=== PATIENT | female | born 1995 | race Caucasian/White ===

== ENCOUNTER 2021-04-12 08:56 | Emergency (ER) | payer BC, OTHER ==
[2021-04-12] MEDS ORDERED: diphenhydrAMINE 50 MG/ML 1 ML VIAL IVP STA (10:48)
[2021-04-12] MEDS ORDERED: SODIUM CHLORIDE 0.9% 1,000 ML IV STA (10:48)
[2021-04-12] MEDS ORDERED: METOCLOPRAMIDE 5 MG/ML 2 ML VIAL IVP STA (10:48)
[2021-04-12 11:13] LABS: Basophils # (A) 0.1 k/uL (0-0.2); Basophils % (A) 1 %; Eosinophils # (A) 0.1 k/uL (0-0.7); Eosinophils % (A) 1 %; HCT 42.5 % (34.0-46.0); HGB 14.8 gm/dL (11.4-16.0); Lymphocytes # (A) 0.4 k/uL (1.0-4.8); Lymphocytes % (A) 4 %; MCH 32.2 pg (25.0-35.0); MCHC 34.8 g/dL (31.0-37.0); MCV 92.6 fL (80.0-100.0); Mean Platelet Volume 7.7; Monocytes # (A) 0.3 k/uL (0-1.0); Monocytes % (A) 3 %; Neutrophils # (A) 8.7 k/uL (1.3-7.7); Neutrophils % (A) 91 %; Platelet Count 253 k/uL (150-450); RBC 4.59 m/uL (3.80-5.40); RDW 12.9 % (11.5-15.5); WBC 9.5 k/uL (3.8-10.6)
--- NOTE | 2021-04-12 11:14 | ED ---
General Adult HPI - General Chief complaint: Nausea/Vomiting/Diarrhea Stated complaint: 10 weeks preg, NVD Time Seen by Provider: 04/12/21 10:42 Source: patient Mode of arrival: ambulatory Limitations: no limitations - History of Present Illness Initial comments: 25-year-old female, , 10 weeks presenting to the emergency department with a chief complaint of nausea vomiting diarrhea. Patient reports her symptoms began yesterday having nausea and multiple episodes not believe some nonbloody vomiting. States this is not typical vomiting which usually occurs in the morning. This has been consistent throughout the day. States she has not been able to keep any orals. States he is also developed some diarrhea since yesterday. Reports very mild lower abdominal pain. She denies any associated fevers or chills. Denies any vaginal bleeding, discharge, foul smell or itching. Denies dysuria, increased urgency or frequency. - Related Data Home Medications Medication Instructions Recorded Confirmed Norgestimate-Ethinyl Estradiol 1 each PO DAILY 02/05/15 02/05/15 [Tri-Sprintec Tablet] Allergies Allergy/AdvReac Type Severity Reaction Status Date / Time No Known Allergies Allergy Verified 04/12/21 09:30 Review of Systems ROS Statement: Those systems with pertinent positive or pertinent negative responses have been documented in the HPI. ROS Other: All systems not noted in ROS Statement are negative. Past Medical History Past Medical History: No Reported History History of Any Multi-Drug Resistant Organisms: None Reported Past Surgical History: No Surgical Hx Reported Past Psychological History: No Psychological Hx Reported Smoking Status: Never smoker Past Alcohol Use History: None Reported Past Drug Use History: None Reported General Exam Limitations: no limitations General appearance: alert, in no apparent distress Head exam: Present: atraumatic, normocephalic, normal inspection Eye exam: Present: normal appearance Pupils: Present: normal accommodation ENT exam: Present: normal exam, normal oropharynx, mucous membranes dry Neck exam: Present: normal inspection, full ROM. Absent: tenderness, lymphadenopathy Respiratory exam: Present: normal lung sounds bilaterally. Absent: respiratory distress, wheezes, rales, rhonchi, stridor Cardiovascular Exam: Present: regular rate, normal rhythm, normal heart sounds. Absent: systolic murmur GI/Abdominal exam: Present: soft. Absent: distended, tenderness, guarding, rebound, rigid Extremities exam: Present: normal inspection, full ROM, normal capillary refill. Absent: tenderness, pedal edema, joint swelling, calf tenderness Back exam: Present: normal inspection, full ROM. Absent: tenderness, CVA ten derness (R), CVA tenderness (L) Neurological exam: Present: alert, oriented X3, CN II-XII intact, normal gait Psychiatric exam: Present: normal affect, normal mood Skin exam: Present: warm, dry, intact, normal color Course Vital Signs 04/12/21 09:28 Temperature 97.6 F Pulse Rate 89 Respiratory 16 Rate Blood Pressure 97/67 O2 Sat by Pulse 98 Oximetry Medical Decision Making - Medical Decision Making 25-year-old female, , 10 weeks presenting to the emergency department with a chief complaint of nausea vomiting diarrhea. On physical examination she has dry mucous membranes. She is not able to give a urine sample. HCG Quant 219,000. Ultrasound reveals a single, live intrauterine pre gnancy 10 weeks and 5 days' gestation. Patient was given IV fluids, Reglan and Benadryl. Reevaluation, she reports improve the symptoms. She has an appointment to see Dr. Moreno who is her OB. I will prescribe Reglan for her. Return parameters were thoroughly discussed with patient is an ascending agreeable. Case discussed with Dr. Garibay. - Lab Data Result diagrams: 04/12/21 11:00 04/12/21 11:00 Lab Results 04/12/21 04/12/21 Range/Units 11:00 11:00 WBC 9.5 (3.8-10.6) k/uL RBC 4.59 (3.80-5.40) m/uL Hgb 14.8 (11.4-16.0) gm/dL Hct 42.5 (34.0-46.0) % MCV 92.6 (80.0-100.0) fL MCH 32.2 (25.0-35.0) pg MCHC 34.8 (31.0-37.0) g/dL RDW 12.9 (11.5-15.5) % Plt Count 253 (150-450) k/uL MPV 7.7 Neutrophils % 91 % Lymphocytes % 4 % Monocytes % 3 % Eosinophils % 1 % Basophils % 1 % Neutrophils # 8.7 H (1.3-7.7) k/uL Lymphocytes # 0.4 L (1.0-4.8) k/uL Monocytes # 0.3 (0-1.0) k/uL Eosinophils # 0.1 (0-0.7) k/uL Basophils # 0.1 (0-0.2) k/uL Sodium 135 L (137-145) mmol/L Potassium 4.1 (3.5-5.1) mmol/L Chloride 105 (98-107) mmol/L Carbon Dioxide 20 L (22-30) mmol/L Anion Gap 10 mmol/L BUN 8 (7-17) mg/dL Creatinine 0.46 L (0.52-1.04) mg/dL Est GFR (CKD-EPI)AfAm >90 (>60 ml/min/1.73 sqM) Est GFR (CKD-EPI)NonAf >90 (>60 ml/min/1.73 sqM) Glucose 89 (74-99) mg/dL Calcium 9.6 (8.4-10.2) mg/dL Total Bilirubin 0.6 (0.2-1.3) mg/dL AST 21 (14-36) U/L ALT 12 (4-34) U/L Alkaline Phosphatase 78 (38-126) U/L Total Protein 7.1 (6.3-8.2) g/dL Albumin 4.2 (3.5-5.0) g/dL HCG, Quant 983537.0 mIU/mL Disposition Clinical Impression: Nausea vomiting and diarrhea Disposition: HOME SELF-CARE Condition: Stable Instructions (If sedation given, give patient instructions): Acute Nausea and Vomiting (ED) Additional Instructions: Please return to the Emergency Department if symptoms worsen or any other concerns. Is patient prescribed a controlled substance at d/c from ED?: No Referrals: Bhavik Dennison MD [Primary Care Provider] - 1-2 days Time of Disposition: 12:47
[2021-04-12 11:25] LABS: ALT 12 U/L (4-34); AST 21 U/L (14-36); African American GFR (CKD) >90 (>60 ml/min/1.73 sqM); Albumin 4.2 g/dL (3.5-5.0); Alkaline Phosphatase 78 U/L (38-126); Anion Gap 10 mmol/L; Blood Urea Nitrogen 8 mg/dL (7-17); Calcium 9.6 mg/dL (8.4-10.2); Carbon Dioxide 20 mmol/L (22-30); Chloride 105 mmol/L (98-107); Glucose 89 mg/dL (74-99); Non-African American GFR(CKD) >90 (>60 ml/min/1.73 sqM); Potassium 4.1 mmol/L (3.5-5.1); Sodium 135 mmol/L (137-145); Total Bilirubin 0.6 mg/dL (0.2-1.3); Total Protein 7.1 g/dL (6.3-8.2)
[2021-04-12] MEDS ORDERED: SODIUM CHLORIDE 0.9% 500 ML 500 ML IV STA (11:28)
--- NOTE | 2021-04-12 11:51 | US ---
EXAMINATION TYPE: Transabdominal DATE OF EXAM: 04/12/2021 11:31 AM COMPARISON: NONE CLINICAL HISTORY: bilat abd cramping. Pelvic pain EXAM PERFORMED: Transabdominal (TA) EXAM MEASUREMENTS: GESTATIONAL AGE / DATING Physician Established: (10 weeks/3 days) EDC: 11/05/2021 Dates by LMP: LMP unknown Dates by First Scan: No previous this is first scan Dates by Current Scan for: (10 weeks/5 days) EDC: 11/03/2021 MATERNAL ANATOMY Uterus: 11.3 x 6.6 x 7.6cm Right Ovary: 2.8 x 2.1 x 1.7cm Left Ovary: 2.5 x 1.5 x 1.6cm Post CDS / Adnexa: wnl Presence of free fluid: no Presence of corpus luteal cyst: not seen Presence of subchorionic bleed: no GESTATION / SURVEY CRL: 3.8cm (10 weeks/5 days) Yolk Sac (normal less than 6mm): not seen Heart Rate: 171 bpm Rhythm: Normal IUP: Viable IUP Viable single IUP measuring 10 weeks 5 days with a heart rate of 171bpm and an estimated delivery bella e of 11/03/2021 IMPRESSION: Single viable intrauterine as noted.
[2021-04-12 13:44] LABS: Appearance,Urine Cloudy (Clear); Bacteria,Urine Moderate /hpf; Bilirubin,Urine Negative (Negative); Blood,Urine Negative (Negative); Color,Urine Yellow; Glucose,Urine (UA) Negative (Negative); Ketones,Urine 4+ (Negative); Leukocyte Esterase,Urine Trace (Negative); Mucus,Urine Occasional /hpf; Nitrite,Urine Negative (Negative); PH, Urine 7.5 (5.0-8.0); Protein,Urine Trace (Negative); RBC,Urine 1 /hpf (0-5); Specific Gravity,Urine 1.023 (1.001-1.035); Squamous Epithelial Cell,Urine 8 /hpf (0-4); Urobilinogen,Urine <2.0 mg/dL (<2.0); WBC,Urine 3 /hpf (0-5)
[2021-04-12 14:03] VITALS: BP 104/71; PULSE 84; RESP 18; TEMP 97.7
== END 2021-04-12 14:00 | disposition home or self-care (01) ==
LOC: EC 08:56
DX: O21.9 Vomiting of pregnancy, unspecified (principal); O26.891 Other specified pregnancy related conditions, first trimester; R19.7 Diarrhea, unspecified; R10.30 Lower abdominal pain, unspecified; Z3A.10 10 weeks gestation of pregnancy
CPT/HCPCS: 36415; 80053; 85025; 81001; 84702; 76801; 96374; 96375; 96361; 99284; J1200; J2765

== ENCOUNTER 2021-08-11 15:50 | Emergency (ER) | payer OTHER ==
--- NOTE | 2021-08-11 17:44 | ED ---
General Adult HPI - General Stated complaint: COVID+, NEEDS BAM, 28 WEEKS Time Seen by Provider: 08/11/21 17:41 - History of Present Illness Initial comments: 25 year-old female patient presents to get the antibody infusion after testing positive for COVID today. She has had symptoms for about a week. She is 28 weeks . Denies fever. Reports some shortness of breath. Reports mild cough. Mild nausea. No vomiting or diarrhea. Denies any other medical problems. She is not having any abdominal pain, vaginal bleeding, or discharge. She is . - Related Data Home Medications Medication Instructions Recorded Confirmed Aspirin EC [Ecotrin Low Dose] 81 mg PO DAILY 08/11/21 08/11/21 M- Plus 1 tab PO DAILY 08/11/21 08/11/21 Omeprazole 20 mg PO DAILY 08/11/21 08/11/21 Allergies Allergy/AdvReac Type Severity Reaction Status Date / Time No Known Allergies Allergy Verified 08/11/21 20:06 Review of Systems ROS Statement: Those systems with pertinent positive or pertinent negative responses have been documented in the HPI. ROS Other: All systems not noted in ROS Statement are negative. Past Medical History Past Medical History: No Reported History History of Any Multi-Drug Resistant Organisms: None Reported Past Surgical History: No Surgical Hx Reported Past Psychological History: No Psychological Hx Reported Smoking Status: Never smoker Past Alcohol Use History: None Reported Past Drug Use History: None Reported General Exam General appearance: alert, in no apparent distress, other (This is a well- developed, well-nourished adult female in no acute distress.) ENT exam: Present: normal exam, normal oropharynx, mucous membranes moist Respiratory exam: Present: normal lung sounds bilaterally. Absent: respiratory distress, wheezes, rales, rhonchi, stridor Cardiovascular Exam: Present: regular rate, normal rhythm, normal heart sounds. Absent: systolic murmur, diastolic murmur, rubs, gallop, clicks GI/Abdominal exam: Present: soft, normal bowel sounds, other (Gravid abdomen). Absent: distended, tenderness, guarding, rebound, rigid Neurological exam: Present: alert, oriented X3, CN II-XII intact Psychiatric exam: Present: normal affect, normal mood Skin exam: Present: warm, dry, intact, normal color. Absent: rash Course Vital Signs 12/08/11/21 08/11/21 17:38 19:42 20:59 Temperature 98.7 F Pulse Rate 80 88 70 Respiratory 18 16 Rate Blood Pressure 120/74 118/76 104/71 O2 Sat by Pulse 98 97 99 Oximetry 08/11/21 22:10 Temperature 97.8 F Pulse Rate 70 Respiratory 16 Rate Blood Pressure 107/70 O2 Sat by Pulse 97 Oximetry Medical Decision Making - Medical Decision Making 25-year-old female patient is 28 weeks presents at the request of her WATER TESTER to receive monoclonal antibody infusion. She is cared for by Dr. Moreno. She did test positive for ". She did receive the infusion and tolerated it well. To be discharged to follow-up with the primary care physician and her WATER TESTER for recheck as soon as possible. Return parameters were discussed in detail. She verbalizes understanding and agrees with this plan. My attending is Dr. Galarza. Disposition Clinical Impression: COVID-19 Disposition: HOME SELF-CARE Condition: Good Instructions (If sedation given, give patient instructions): Coronavirus Disease 2019 (COVID-19) Additional Instructions: Tips to help you feel better: -Maintain adequate fluid intake - especially water. -Rest, you are healing your body will require extra sleep. -Eat even if you do not feel like it - broth, jello, toast are fine if you cannot eat full meals. -Take tylenol (if you have no allergies or have not been instructed to avoid these medications) to help with body aches and fevers. -Take medications as prescribed. Follow-up with your primary care physician and OBGYN for recheck in 1-2 days. Return for any new, worsening, or concerning symptoms. Is patient prescribed a controlled substance at d/c from ED?: No Referrals: Bhavik Dennison MD [Primary Care Provider] - 1-2 days Time of Disposition: 21:35
[2021-08-11] MEDS ORDERED: SODIUM CHLORIDE 0.9% 50 ML IVPB ONE (18:00)
[2021-08-11] MEDS ORDERED: CASIRIVIMAB (REGN10933) (EUA) 600 MG, IMDEVIMAB (REGN10987) (EUA) 600 MG in SODIUM CHLO... IVPB ONE (18:00)
[2021-08-11 20:47] VITALS: RESP 16
[2021-08-11 21:00] VITALS: PULSE 70
[2021-08-11 22:11] VITALS: BP 107/70; TEMP 97.8
== END 2021-08-11 22:10 | disposition home or self-care (01) ==
LOC: EC 15:50
DX: O98.512 Other viral diseases complicating pregnancy, second trimester (principal); U07.1 COVID-19; Z3A.26 26 weeks gestation of pregnancy
CPT/HCPCS: 99284; Q0244

== ENCOUNTER 2021-10-17 01:10 | Inpatient (IN) | payer OTHER ==
[2021-10-17] MEDS ORDERED: TERBUTALINE 1 MG/ML VIAL SQ PRN (01:20)
[2021-10-17] MEDS ORDERED: OXYTOCIN 10 UNIT/ML 1 ML VIAL IM PRN (01:20)
[2021-10-17] MEDS ORDERED: METHYLERGONOVINE 0.2 MG/ML 1 ML AMP IM PRN (01:20)
[2021-10-17] MEDS ORDERED: CARBOPROST TROMETHAMINE 250 MCG/ML 1 ML AMP IM PRN (01:20)
[2021-10-17] MEDS ORDERED: PENICILLIN G POTASSIUM 5,000,000 UNIT in DEXTROSE 5% IN WATER 100 ML IVPB STA ×2 (01:20)
[2021-10-17] MEDS ORDERED: LIDOCAINE 1% (PF) 10 MG/ML (30 ML SDV) SQ PRN (01:20)
[2021-10-17] MEDS ORDERED: LACTATED RINGERS 1,000 ML IV SCH (01:30)
[2021-10-17] MEDS ORDERED: OXYTOCIN 30 UNITS/500 ML NS 30 UNIT in SALINE 1 500ML.BAG IV SCH ×2 (01:30→07:45)
--- NOTE | 2021-10-17 01:31 | P.HPOB ---
History of Present Illness H&P Date: 10/17/21 Chief Complaint: Spontaneous rupture of membranes This is a 25-year-old 6 para 0050 woman with an estimated due date of 11/07/2021 who presents at 37-2/7 weeks gestation complaining of spontaneous rupture of membranes and regular painful contractions. Upon initial evaluation in labor and delivery triage rupture of membranes is confirmed by amnio sure and she is actively tyler and 4+ centimeters dilated. Her has been complicated by multiple covert positive infections. She received monoclonal antibody therapy. She's been followed antenatally with NSTs and growth ultrasounds all of which have been reassuring. 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 Laboratory data shows blood type B+, antibody screen negative, rubella immune, VDRL nonreactive, hep B surface antigen negative, HIV negative, gonorrhea and chlamydia cultures negative, glucose tolerance testing within normal limits. Group B strep cultures were taken however results are still pending. Review of Systems All systems: negative Past Medical History Past Medical History: No Reported History History of Any Multi-Drug Resistant Organisms: None Reported Past Surgical History: No Surgical Hx Reported Past Psychological History: No Psychological Hx Reported Smoking Status: Never smoker Past Alcohol Use History: None Reported Past Drug Use History: None Reported Medications and Allergies Home Medications Medication Instructions Recorded Confirmed Type Pnv No.95/Ferrous Fum/Folic AC 1 tab PO DAILY 10/17/21 10/17/21 History [ Multivitamin Tablet] Allergies Allergy/AdvReac Type Severity Reaction Status Date / Time No Known Allergies Allergy Verified 10/17/21 01:15 Exam Intake and Output 10/16/21 10/16/21 10/17/21 14:59 22:59 06:59 Other: Weight 72.121 kg This is a visibly gravid, very uncomfortable and actively laboring female. Targeted physical exam is performed. Per RN exam the patient has 4+ centimeters dilated 70% effaced, vertex. Rupture of membranes is confirmed. She has category 1 heart tones. She has spontaneously tyler every 2-3 minutes uncomfortably. Assessment and Plan (1) 37 weeks gestation of Current Visit: Yes Status: Acute Code(s): Z3A.37 - 37 WEEKS GESTATION OF SNOMED Code(s): 96558606 (2) Spontaneous rupture of membranes Current Visit: Yes Status: Acute Code(s): HLH4952 - SNOMED Code(s): 749421774 (3) Spontaneous onset of labor Current Visit: Yes Status: Acute Code(s): RTU4803 - SNOMED Code(s): 63460791 Plan: This is a 25-year-old 6 para 0 woman who presents at 37-2/7 weeks' gestation with spontaneous rupture of membranes and active labor. Group B strep cultures are pending therefore status unknown. Prophylactic antibiotics will be initiated. status currently reassuring by external monitoring. She may have an epidural for analgesia upon request. Anticipate normal spontaneous vaginal delivery.
[2021-10-17] MEDS: LACTATED RINGERS 1,000 ML IV SCH ×2 (01:48→20:07)
[2021-10-17] MEDS ORDERED: BUTORPHANOL 1 MG/ML 1 ML VIAL IV PRN (02:06)
[2021-10-17 02:32] LABS: Basophils % (A) 0 %; Eosinophils # (A) 0.2 k/uL (0-0.7); Eosinophils % (A) 3 %; HCT 36.3 % (34.0-46.0); HGB 12.5 gm/dL (11.4-16.0); Lymphocytes # (A) 1.6 k/uL (1.0-4.8); Lymphocytes % (A) 19 %; MCH 33.2 pg (25.0-35.0); MCHC 34.5 g/dL (31.0-37.0); MCV 96.3 fL (80.0-100.0); Mean Platelet Volume 8.4; Monocytes # (A) 0.6 k/uL (0-1.0); Monocytes % (A) 7 %; Neutrophils % (A) 70 %; Platelet Count 232 k/uL (150-450); RBC 3.77 m/uL (3.80-5.40); RDW 13.5 % (11.5-15.5); WBC 8.6 k/uL (3.8-10.6)
[2021-10-17] MEDS ORDERED: SODIUM CHLORIDE 0.9% 100 ML BAG ONE (02:52)
[2021-10-17] MEDS ORDERED: fentaNYL (PF) 50 MCG/ML 5 ML AMP ONE (02:52)
[2021-10-17] MEDS ORDERED: ROPIVACAINE 5MG/ML 20ML VIAL ONE (02:52)
[2021-10-17] MEDS: PENICILLIN G POTASSIUM 2,500,000 UNIT in DEXTROSE 5% IN WATER 100 ML IVPB SCH ×4 (06:01→09:59)
[2021-10-17] MEDS ORDERED: diphenhydrAMINE 50 MG CAP PO PRN (07:33)
[2021-10-17] MEDS ORDERED: ACETAMINOPHEN TAB 325 MG TAB PO PRN (07:33)
[2021-10-17] MEDS ORDERED: diphenhydrAMINE 25 MG CAP PO PRN (07:33)
[2021-10-17] MEDS ORDERED: BENZOCAINE/MENTHOL SPRAY 1 GM/SPRAY AEROSOL TOPICAL PRN (07:33)
[2021-10-17] MEDS ORDERED: SIMETHICONE 80 MG CHEWABLE PO PRN (07:33)
[2021-10-17] MEDS ORDERED: diphenhydrAMINE 50 MG/ML 1 ML VIAL IVP PRN ×2 (07:33)
[2021-10-17] MEDS ORDERED: ZOLPIDEM 5 MG TAB PO PRN (07:33)
[2021-10-17] MEDS ORDERED: LANOLIN CREAM 5 GM TUBE TOPICAL PRN (07:33)
[2021-10-17] MEDS ORDERED: HYDROCORTISONE 2.5% RECTAL CREAM 30 GM TUBE RECTAL PRN (07:33)
--- NOTE | 2021-10-17 07:33 | P.PROBDLV ---
Vaginal Delivery Note - . Vaginal Delivery Note: Findings: Male infant in the right occiput posterior position with Apgars of 9 at 1 minute and 9 at 5 minutes weighing 7 lbs. 4 oz., 3305 g. Intact, three- vessel cord placenta. Bilateral labial abrasions. EBL 150 mL's. Delivery summary: This is a 25 year old 6 para 0050 woman who presented at 37-2/7 weeks' gestation with spontaneous rupture of membranes and active labor. Rupture of membranes occurred at 2345 on 10/16/2021. Following admission she was found to be actively tyler and rupture of membranes was confirmed. She was 4+ centimeters dilated. Following admission she did receive an epidural anesthetic and group B strep prophylactic antibiotics secondary to GBS status unknown. She had an unremarkable progression to complete cervical dilation however had no strong urge to push. She reached complete dilation at approximately 05 30. She commenced pushing at 06 25. There was excellent maternal effort. She pushed to and was repositioned, prepped and draped in the dorsal modified Piotr position. Bladder was drained with a straight catheter for approximately 200 mL of clear urine. With additional maternal effort 1 the infant's head delivered from the right occiput posterior position. This rested treated to the deliver the right shoulder under the pubic bone without difficulty. The rest the infant was delivered onto the field. The nose and mouth were bulb suctioned. The infant was placed on the maternal a bdomen. Eventually the cord was clamped and cut. Apgars were 9 at 1 minute and 9 at 5 minutes. The perineum was inspected and bilateral labial abrasions were appreciated. They were not actively bleeding. An intact, three-vessel cord placenta was expressed after the initiation of Pitocin intravenously. There was an approximately 10 minute third stage of labor. The uterus was massaged and noted to be firm below the level of the umbilicus. The vagina was reinspected and no further lacerations were noted. EBL was approximately 150 mL's. Both mother and infant were doing well post delivery in the room. All counts were correct.
[2021-10-17] MEDS: SENNOSIDES-DOCUSATE SODIUM 1 EACH TAB PO SCH ×2 (08:02→21:03)
[2021-10-17] MEDS: IBUPROFEN 600 MG TAB PO PRN ×2 (08:02→15:36)
[2021-10-18 01:09] VITALS: TEMP 98.1
[2021-10-18 07:06] LABS: Basophils # (A) 0.1 k/uL (0-0.2); Basophils % (A) 1 %; Eosinophils # (A) 0.4 k/uL (0-0.7); Eosinophils % (A) 4 %; HCT 34.3 % (34.0-46.0); HGB 11.4 gm/dL (11.4-16.0); Lymphocytes # (A) 1.6 k/uL (1.0-4.8); Lymphocytes % (A) 16 %; MCH 32.9 pg (25.0-35.0); MCHC 33.4 g/dL (31.0-37.0); MCV 98.7 fL (80.0-100.0); Monocytes # (A) 0.5 k/uL (0-1.0); Monocytes % (A) 5 %; Neutrophils % (A) 72 %; Platelet Count 188 k/uL (150-450); RBC 3.47 m/uL (3.80-5.40); RDW 13.5 % (11.5-15.5); WBC 9.7 k/uL (3.8-10.6)
[2021-10-18 08:07] VITALS: BP 105/59; PULSE 68; RESP 16
[2021-10-18] MEDS: SENNOSIDES-DOCUSATE SODIUM 1 EACH TAB PO SCH (08:09)
--- NOTE | 2021-10-18 10:23 | P.DS ---
Providers Date of admission: 10/17/21 01:15 Expected date of discharge: 10/18/21 Attending physician: Evaristo Silva Primary care physician: Stated None - Discharge Diagnosis(es) (1) 37 weeks gestation of Current Visit: Yes Status: Acute (2) Spontaneous rupture of membranes Current Visit: Yes Status: Acute (3) Spontaneous onset of labor Current Visit: Yes Status: Acute (4) Occiput posterior presentation of fetus Current Visit: Yes Status: Acute (5) Normal spontaneous vaginal delivery Current Visit: Yes Status: Acute Hospital Course: This is a 25-year-old 6 now para 1051 woman who presented at 37-2/7 weeks' gestation with spontaneous rupture of membranes and in active labor. Following admission she received group B strep prophylactic antibiotics. She received Stadol followed by an epidural anesthetic for analgesia. She reached complete cervical dilation after an unremarkable first stage of labor. She had a rapid second stage of labor to deliver a liveborn male from the occiput posterior position. Apgars were 9 at 1 minute and 9 at 5 minutes and weight was 7 lbs. 4 oz. She had bilateral labial abrasions and no perineal lacerations. Her course was unremarkable. By the morning of day #1 she was ambulating and voiding without difficulty. Her lochia was decreasing. She was breast-feeding successfully. Her vital signs and hemoglobin were stable. She was therefore discharged home with routine instructions for care and follow-up. Procedures: Normal spontaneous vaginal delivery Patient Condition at Discharge: Good Plan - Discharge Summary New Discharge Prescriptions: No Action Pnv No.95/Ferrous Fum/Folic AC [ Multivitamin Tablet] 1 tab PO DAILY Discharge Medication List Pnv No.95/Ferrous Fum/Folic AC [ Multivitamin Tablet] 1 tab PO DAILY 10/17/21 [History] Follow up Appointment(s)/Referral(s): Evaristo Silva MD [STAFF PHYSICIAN] - 6 Weeks Activity/Diet/Wound Care/Special Instructions: Follow-up in the office in 6 weeks . Call with any concerning signs or symptoms including heavy vaginal bleeding, severe abdominal pain, fever greater than 101, swelling or redness of the lower extremities, foul vaginal discharge, or signs of depression. Nothing in the vagina for 6 weeks after delivery, specifically no intercourse. May use [id number] Tylenol and/or ibuprofen as needed for pain. Discharge Disposition: HOME SELF-CARE
== END 2021-10-18 16:25 | disposition home or self-care (01) | DRG 807 ==
LOC: FBPOP 01:10 → 4FBP 01:15
PROVIDERS: ADMIT Obstetrics & Gynecology; ATTEND Obstetrics & Gynecology
PROC: 10E0XZZ Delivery of Products of Conception, External Approach (ICD-10-PCS; principal; 2021-10-17)
DX: O75.89 Other specified complications of labor and delivery (principal); Z37.0 Single live birth; Z3A.37 37 weeks gestation of pregnancy; O71.82 Other specified trauma to perineum and vulva
CPT/HCPCS: 85025; 86850; 86900; 86901

== ENCOUNTER 2023-03-21 17:16 | Emergency (ER) | payer OTHER ==
[2023-03-21 17:40] VITALS: RESP 16
[2023-03-21] MEDS ORDERED: SODIUM CHLORIDE 0.9% 1,000 ML IV STA (19:30)
[2023-03-21] MEDS ORDERED: HYDROmorphone 0.5 MG/0.5 ML SYRINGE IVP STA (19:47)
[2023-03-21] MEDS ORDERED: diphenhydrAMINE 50 MG/ML 1 ML VIAL IVP STA (19:47)
[2023-03-21] MEDS ORDERED: PYRIDOXINE 100 MG/ML 1 ML VIAL IVP STA (19:50)
[2023-03-21 19:57] LABS: Basophils % (A) 0 %; Eosinophils # (A) 0.1 k/uL (0-0.7); Eosinophils % (A) 1 %; HCT 43.3 % (34.0-46.0); HGB 14.5 gm/dL (11.4-16.0); Lymphocytes # (A) 2.5 k/uL (1.0-4.8); Lymphocytes % (A) 25 %; MCH 31.3 pg (25.0-35.0); MCHC 33.4 g/dL (31.0-37.0); MCV 93.7 fL (80.0-100.0); Mean Platelet Volume 7.5; Monocytes # (A) 0.7 k/uL (0-1.0); Monocytes % (A) 7 %; Neutrophils # (A) 6.6 k/uL (1.3-7.7); Neutrophils % (A) 64 %; Platelet Count 317 k/uL (150-450); RBC 4.62 m/uL (3.80-5.40); RDW 12.8 % (11.5-15.5); WBC 10.3 k/uL (3.8-10.6)
[2023-03-21 20:36] LABS: Appearance,Urine Cloudy (Clear); Bacteria,Urine Occasional /hpf; Bilirubin,Urine Negative (Negative); Blood,Urine Negative (Negative); Color,Urine Light Yellow; Glucose,Urine (UA) Negative (Negative); Ketones,Urine Negative (Negative); Leukocyte Esterase,Urine Trace (Negative); Nitrite,Urine Negative (Negative); PH, Urine 6.5 (5.0-8.0); Protein,Urine Negative (Negative); RBC,Urine 1 /hpf (0-5); Specific Gravity,Urine 1.012 (1.001-1.035); Squamous Epithelial Cell,Urine 11 /hpf (0-4); Urobilinogen,Urine <2.0 mg/dL (<2.0); WBC,Urine 2 /hpf (0-5)
--- NOTE | 2023-03-21 20:49 | US ---
EXAMINATION TYPE: Ultrasound OB <= 14 week fetus DATE OF EXAM: 03/21/2023 8:22 PM COMPARISON: NONE CLINICAL INDICATION: Female, 27 years old with history of pain; cramping since last night. No bleedin g. Pt states her last period was end of January, but not sure on exact date. EXAM PERFORMED: Transabdominal (TA) EXAM MEASUREMENTS: GESTATIONAL AGE / DATING Physician Established: Not yet established Dates by LMP: LMP unknown Dates by First Scan: No previous this is first scan Dates by Current Scan for: Unable to date by today's study MATERNAL ANATOMY Uterus: 9.6 x 6.8 x 4.2cm Right Ovary: 3.2 x 2.1 x 2.5cm Left Ovary: 3.3 x 2.4 x 1.4cm Post CDS / Adnexa: wnl Presence of free fluid: No Presence of corpus luteal cyst: Possible in rt ovary measuring 2.1 x 1.5 x 2.3cm Presence of subchorionic bleed: No GESTATION / SURVEY CRL: Not seen MSD: Not seen IUP: Cystic area seen in endometrium. A second smaller cystic area lower down measuring 8 mm could r epresent a cervical nabothian cyst. Date of LMP: Unknown Beta HcG (if available): Pending Tractor Engine As[employer]er notes: Cystic area seen in endometrium measuring 0.8cm. This could represent a gestationa l sac. This measurement is out of range and unable to date. IMPRESSION: Small 8 mm cystic structure along the fundal endometrium is too small for dating. It could represent an early gestational sac. Failed and pseudogestational sac of a nonvisualized ectopic pregn todd are also in the differential. Recommend serial beta-hCG and ultrasound follow-up to ensure the a ppearance of a normal pole with cardiac activity.
--- NOTE | 2023-03-21 21:17 | ED ---
Abdominal Pain HPI - General Chief Complaint: Abdominal Pain Stated Complaint: ABD Pain, (unk wks) Time Seen by Provider: 03/21/23 19:23 Source: patient Mode of arrival: ambulatory Limitations: no limitations - History of Present Illness Initial Comments: Patient is 27 year-old female presents to the emergency department for abdominal pain. Patient is at about 5 weeks based on last menstrual period. She does not have an OB yet. Today she started to have significant pain in her lower abdomen, both sides. Pain is sharp and nature, no radiation. Reports nausea no vomiting. No fever or chills. No urinary symptoms, Diarrhea, co nstipation. No vaginal bleeding. She does have history of ectopic a couple years ago which she states was managed in [place]. - Related Data Home Medications Medication Instructions Recorded Confirmed Pnv No.95/Ferrous Fum/Folic AC 1 tab PO DAILY 10/17/21 10/17/21 [ Multivitamin Tablet] Allergies Allergy/AdvReac Type Severity Reaction Status Date / Time No Known Allergies Allergy Verified 03/21/23 17:40 Review of Systems ROS Statement: Those systems with pertinent positive or pertinent negative responses have been documented in the HPI. ROS Other: All systems not noted in ROS Statement are negative. Past Medical History Past Medical History: No Reported History Additional Past Medical History / Comment(s): PCOS History of Any Multi-Drug Resistant Organisms: None Reported Past Surgical History: No Surgical Hx Reported Additional Past Surgical History / Comment(s): D&C (2019) Past Anesthesia/Blood Transfusion Reactions: Unable to Obtain Past Psychological History: No Psychological Hx Reported Smoking Status: Never smoker Past Alcohol Use History: Occasional Past Drug Use History: None Reported - Past Family History Father History Unknown: Yes General Exam Limitations: no limitations General appearance: alert Respiratory exam: Present: normal lung sounds bilaterally. Absent: respiratory distress, wheezes, rales, rhonchi, stridor Cardiovascular Exam: Present: regular rate, normal rhythm, normal heart sounds. Absent: systolic murmur, diastolic murmur, rubs, gallop, clicks GI/Abdominal exam: Present: soft, tenderness (Mild right lower quadrant left lower quadrant), normal bowel sounds. Absent: distended, guarding, rebound, rigid Extremities exam: Present: normal inspection, normal capillary refill Neurological exam: Present: alert Skin exam: Present: warm, dry, intact, normal color. Absent: rash Course Vital Signs 03/21/23 03/21/23 17:34 22:11 Temperature 98.1 F 98.6 F Pulse Rate 103 H 70 Respiratory 16 16 Rate Blood Pressure 128/75 99/63 O2 Sat by Pulse 98 97 Oximetry Medical Decision Making - Medical Decision Making Was pt. sent in by a medical professional or institution (, PA, SUPERVISOR TELEPHONE INFORMATION, urgent care, hospital, or shelter...) When possible be specific @ -No Did you speak to anyone other than the patient for history (EMS, parent, family, police, friend...)? What history was obtained from this source @ -No Did you review nursing and triage notes (agree or disagree)? Why? @ -I reviewed and agree with nursing and triage notes Were old charts reviewed (outside hosp., previous admission, EMS record, old EKG , old radiological studies, urgent care reports/EKG's, shelter records)? Report findings @ -No old charts were reviewed Differential Diagnosis (chest pain, altered mental status, abdominal pain women, abdominal pain men, vaginal bleeding, weakness, fever, dyspnea, syncope, headache, dizziness, GI bleed, back pain, seizure, CVA, palpatations, mental health)? @ Differential Abdominal Pain Women: Appendicitis, Cholecystitis, diverticulosis, ischemic bowel, pancreatitis, hepatitis, UTI, gastroenteritis, AAA, incarcerated hernia, bowel obstruction, constipation, inflammatory bowel, hepatitis, peptic ulcer disease, splenic infarction, perforated viscus, vulvitis, ovarian torsion, PID, kidney stone, placenta abruption, this is not meant to be an all-inclusive list EKG interpreted by me (3pts min.). @ -As above X-rays interpreted by me (1pt min.). @ -None done CT interpreted by me (1pt min.). @ -None done U/S interpreted by me (1pt. min.). @ small 8 mm cystic structure along the fundal endometrium too small for dating. Could represent early gestational sac versus failed and to gestational sac of a nonvisualized ectopic What testing was considered but not performed or refused? (CT, X-rays, U/S, labs)? Why? @ -None What meds were considered but not given or refused? Why? @ -None Did you discuss the management of the patient with other professionals (kahlil babcock i.e. , PA, SUPERVISOR TELEPHONE INFORMATION, lab, RT, psych nurse, addiction social worker, design quality engineer, teacher, corporate security officer, case management assistant)? Give summary @ -No Was smoking cessation discussed for >3mins.? @ -No Was critical care preformed (if so, how long)? @ -No Were there social determinants of health that impacted care today? How? (Homelessness, low income, unemployed, alcoholism, drug addiction, transportati on, low edu. Level, literacy, decrease access to med. care, assisted, rehab)? @ -No Was there de-escalation of care discussed even if they declined (Discuss DNR or withdrawal of care, Hospice)? DNR status @ -No What co-morbidities impacted this encounter? (DM, HTN, Smoking, COPD, CAD, Cancer, CVA, ARF, Chemo, Hep., AIDS, mental health diagnosis, sleep apnea, morbid obesity)? @ -None Was patient admitted / discharged? Hospital course, mention meds given and route, prescriptions, significant lab abnormalities, going to OR and other pertinent info. @ -Patient presenting for abdominal pain during first trimester . Patient appears to be in pain. She is requesting stronger pain medication than Tylenol. We discussed opioid use in patient states she is in a lot of pain and persists. She was given a dose of Dilaudid. The abdomen is soft. There is mild tenderness in the right lower quadrant left lower quadrant. Laboratory studies obtained. Beta hCG is 5350. Other laboratory studies are relatively unremarkable. Ultrasound shows a small 8 mm cystic structure along the fundal endometrium too small for dating. Pain controlled. Results discussed with patient. At this time there are no diagnostic studies to explain patient's symptoms. Patient feeling well enough to go home. RhoGAM not indicated as patient does not have vaginal bleeding. She is aware that this may be an early , miscarriage, or ectopic. We discussed very strict return parameters. She was given paper prescription for repeat beta-hCG in 48 hours. She will need to follow up for repeat ultrasound. Undiagnosed new problem with uncertain prognosis? @ -No Drug Therapy requiring intensive monitoring for toxicity (Heparin, Nitro, Insulin, Cardizem)? @ -No Were any procedures done? @ -No Diagnosis/symptom? @ -threatened miscarriage Acute, or Chronic, or Acute on Chronic? @ -acute Uncomplicated (without systemic symptoms) or Complicated (systemic symptoms)? @ -uncomplicated Side effects of treatment? @ -[No] Exacerbation, Progression, or Severe Exacerbation? @ -[No] Poses a threat to life or bodily function? How? (Chest pain, [place], [place], pneumonia, PE, COPD, DKA, ARF, appy, cholecystitis, CVA, Diverticulitis, Homicidal, Suicid al, threat to staff... and all critical care pts) @ -[No] Dr. Decker is my attending - Lab Data Result diagrams: 03/21/23 19:37 03/21/23 21:33 Lab Results 03/21/23 03/21/23 03/21/23 Range/Units 19:37 19:37 19:37 WBC 10.3 (3.8-10.6) k/uL RBC 4.62 (3.80-5.40) m/uL Hgb 14.5 (11.4-16.0) gm/dL Hct 43.3 (34.0-46.0) % MCV 93.7 (80.0-100.0) fL MCH 31.3 (25.0-35.0) pg MCHC 33.4 (31.0-37.0) g/dL RDW 12.8 (11.5-15.5) % Plt Count 317 (150-450) k/uL MPV 7.5 Neutrophils % 64 % Lymphocytes % 25 % Monocytes % 7 % Eosinophils % 1 % Basophils % 0 % Neutrophils # 6.6 (1.3-7.7) k/uL Lymphocytes # 2.5 (1.0-4.8) k/uL Monocytes # 0.7 (0-1.0) k/uL Eosinophils # 0.1 (0-0.7) k/uL Basophils # 0.0 (0-0.2) k/uL Sodium (137-145) mmol/L Potassium (3.5-5.1) mmol/L Chloride (98-107) mmol/L Carbon Dioxide (22-30) mmol/L Anion Gap mmol/L BUN (7-17) mg/dL Creatinine (0.52-1.04) mg/dL Est GFR (CKD-EPI)AfAm (>60 ml/min/1.73 sqM) Est GFR (CKD-EPI)NonAf (>60 ml/min/1.73 sqM) Glucose (74-99) mg/dL Calcium (8.4-10.2) mg/dL Total Bilirubin (0.2-1.3) mg/dL AST (14-36) U/L ALT (4-34) U/L Alkaline Phosphatase (38-126) U/L Total Protein (6.3-8.2) g/dL Albumin (3.5-5.0) g/dL Lipase (23-300) U/L HCG, Quant 5350.1 mIU/mL Urine Color Light Yellow Urine Appearance Cloudy H (Clear) Urine pH 6.5 (5.0-8.0) Ur Specific [place] 1.012 (1.001-1.035) Urine Protein Negative (Negative) Urine Glucose (UA) Negative (Negative) Urine Ketones Negative (Negative) Urine Blood Negative (Negative) Urine Nitrite Negative (Negative) Urine Bilirubin Negative (Negative) Urine Urobilinogen <2.0 (<2.0) mg/dL Ur Leukocyte Esterase Trace H (Negative) Urine RBC 1 (0-5) /hpf Urine WBC 2 (0-5) /hpf Ur Squamous Epith Cells 11 H (0-4) /hpf Urine Bacteria Occasional H (None) /hpf 03/21/23 Range/Units 21:33 WBC (3.8-10.6) k/uL RBC (3.80-5.40) m/uL Hgb (11.4-16.0) gm/dL Hct (34.0-46.0) % MCV (80.0-100.0) fL MCH (25.0-35.0) pg MCHC (31.0-37.0) g/dL RDW (11.5-15.5) % Plt Count (150-450) k/uL MPV Neutrophils % % Lymphocytes % % Monocytes % % Eosinophils % % Basophils % % Neutrophils # (1.3-7.7) k/uL Lymphocytes # (1.0-4.8) k/uL Monocytes # (0-1.0) k/uL Eosinophils # (0-0.7) k/uL Basophils # (0-0.2) k/uL Sodium 137 (137-145) mmol/L Potassium 4.7 (3.5-5.1) mmol/L Chloride 105 (98-107) mmol/L Carbon Dioxide 27 (22-30) mmol/L Anion Gap 5 mmol/L BUN 11 (7-17) mg/dL Creatinine 0.53 (0.52-1.04) mg/dL Est GFR (CKD-EPI)AfAm >90 (>60 ml/min/1.73 sqM) Est GFR (CKD-EPI)NonAf >90 (>60 ml/min/1.73 sqM) Glucose 78 (74-99) mg/dL Calcium 8.3 L (8.4-10.2) mg/dL Total Bilirubin 0.5 (0.2-1.3) mg/dL AST 16 (14-36) U/L ALT 20 (4-34) U/L Alkaline Phosphatase 70 (38-126) U/L Total Protein 6.4 (6.3-8.2) g/dL Albumin 3.5 (3.5-5.0) g/dL Lipase 87 (23-300) U/L HCG, Quant mIU/mL Urine Color Urine Appearance (Clear) Urine pH (5.0-8.0) Ur Specific [place] (1.001-1.035) Urine Protein (Negative) Urine Glucose (UA) (Negative) Urine Ketones (Negative) Urine Blood (Negative) Urine Nitrite (Negative) Urine Bilirubin (Negative) Urine Urobilinogen (<2.0) mg/dL Ur Leukocyte Esterase (Negative) Urine RBC (0-5) /hpf Urine WBC (0-5) /hpf Ur Squamous Epith Cells (0-4) /hpf Urine Bacteria (None) /hpf Disposition Clinical Impression: Threatened miscarriage Disposition: HOME SELF-CARE Condition: Good Instructions (If sedation given, give patient instructions): Threatened Miscarriage (ED) Additional Instructions: Please follow up with gallery manager in 1-2 days. Take prescription to a local lab in 48 hours for repeat beta hcg level. Increase fluid intake. Return to the emergency department if you experience new, concerning, or worsening symptoms Is patient prescribed a controlled substance at d/c from ED?: No Referrals: Nonstaff,Physician [Primary Care Provider] - 1-2 days Latisha Aguilar DO [Doctor of Osteopathic Medicine] - 1-2 days
[2023-03-21 21:47] LABS: ALT 20 U/L (4-34); AST 16 U/L (14-36); African American GFR (CKD) >90 (>60 ml/min/1.73 sqM); Albumin 3.5 g/dL (3.5-5.0); Alkaline Phosphatase 70 U/L (38-126); Anion Gap 5 mmol/L; Blood Urea Nitrogen 11 mg/dL (7-17); Calcium 8.3 mg/dL (8.4-10.2); Carbon Dioxide 27 mmol/L (22-30); Chloride 105 mmol/L (98-107); Glucose 78 mg/dL (74-99); Lipase 87 U/L (23-300); Non-African American GFR(CKD) >90 (>60 ml/min/1.73 sqM); Potassium 4.7 mmol/L (3.5-5.1); Sodium 137 mmol/L (137-145); Total Bilirubin 0.5 mg/dL (0.2-1.3); Total Protein 6.4 g/dL (6.3-8.2)
[2023-03-21 22:13] VITALS: BP 99/63; PULSE 70; TEMP 98.6
== END 2023-03-21 22:22 | disposition home or self-care (01) ==
LOC: EC 17:16
DX: O20.0 Threatened abortion (principal); Z3A.01 Less than 8 weeks gestation of pregnancy
CPT/HCPCS: 36415; 80053; 83690; 85025; 81001; 84702; 76801; 99284; 96374; 96375 ×2; 96361 ×2; J1200; J3415; J1170

== ENCOUNTER → 2023-03-24 | Outpatient (CLI) | payer OTHER ==
[2023-03-24 21:45] LABS: Gliadin AB IgA, Deaminated Negative (Negative); Gliadin AB IgA, Unit 2.8 U/mL; Gliadin AB IgG, Deaminated Negative (Negative); Gliadin AB IgG, Unit <0.4 U/mL
== END | disposition home or self-care (01) ==
LOC: LABWHC1 14:56
PROVIDERS: ATTEND Internal Medicine Gastroenterology
DX: R19.4 Change in bowel habit (principal)
CPT/HCPCS: 36415; 83516; 85652; 86140

== ENCOUNTER 2024-08-03 17:49 | Emergency (ER) | payer OTHER ==
[2024-08-03] MEDS: ONDANSETRON 4 MG/2 ML VIAL IVP STA (19:02)
[2024-08-03] MEDS: SODIUM CHLORIDE 0.9% 1,000 ML IV STA (19:04)
--- NOTE | 2024-08-03 19:08 | ED ---
Abdominal Pain HPI - General Chief Complaint: Abdominal Pain Stated Complaint: Abdominal Pain/17wks preg Time Seen by Provider: 08/03/24 18:19 Source: patient Mode of arrival: ambulatory Limitations: no limitations - History of Present Illness Initial Comments: 28-year-old female currently 17 weeks presenting with chief complaint of abdominal pain. Pain mainly over the lower abdomen, equal on both sides. This started around 1400 today. She admits to some nausea, she has had issues with nausea and vomiting since the start of her . No diarrhea. No hematochezia or melena. No dysuria or hematuria. No vaginal bleeding. She does have previous diagnosis of IBS, states that she was previously taking muscle relaxers for it which sometimes help and sometimes did not, states that she has not needed the medication in over a year. No flank pain. States that this is her seventh or eighth , she has history of numerous misc arriages and 1 live . - Related Data Home Medications Medication Instructions Recorded Confirmed Pnv No.95/Ferrous Fum/Folic AC 1 tab PO DAILY 10/17/21 10/17/21 [ Multivitamin Tablet] Previous Rx's Medication Instructions Recorded Cephalexin [Keflex] 500 mg PO Q12HR 7 Days #14 cap 08/03/24 Metoclopramide [Reglan] 5 mg PO BID PRN #10 tab 08/03/24 Miconazole 2% Vaginal Cream 1 applicator VAGINAL HS #45 gm 08/03/24 [Monistat 7] Allergies Allergy/AdvReac Type Severity Reaction Status Date / Time No Known Allergies Allergy Verified 08/03/24 18:03 Review of Systems ROS Statement: Those systems with pertinent positive or pertinent negative responses have been documented in the HPI. ROS Other: All systems not noted in ROS Statement are negative. Past Medical History Past Medical History: No Reported History Additional Past Medical History / Comment(s): PCOS, IBD History of Any Multi-Drug Resistant Organisms: None Reported Past Surgical History: No Surgical Hx Reported Additional Past Surgical History / Comment(s): D&C (2019) Past Anesthesia/Blood Transfusion Reactions: Unable to Obtain Past Psychological History: No Psychological Hx Reported Smoking Status: Never smoker Past Alcohol Use History: Occasional Past Drug Use History: None Reported - Past Family History Father History Unknown: Yes General Exam Limitations: no limitations General appearance: alert, in no apparent distress Head exam: Present: atraumatic, normocephalic, normal inspection Eye exam: Present: normal appearance, EOMI Neck exam: Present: normal inspection. Absent: meningismus Respiratory exam: Present: normal lung sounds bilaterally. Absent: respiratory distress, wheezes, rales, rhonchi, stridor Cardiovascular Exam: Present: regular rate, normal rhythm, normal heart sounds. Absent: systolic murmur, diastolic murmur, rubs, gallop, clicks GI/Abdominal exam: Present: soft. Absent: distended, tenderness, guarding, rebound, rigid Neurological exam: Present: alert, oriented X3 Psychiatric exam: Present: normal affect, normal mood Skin exam: Present: warm, dry Course Vital Signs 08/03/24 08/03/24 08/03/24 18:03 20:13 21:32 Temperature 98.2 F 98.6 F Pulse Rate 64 65 60 Respiratory 18 17 17 Rate Blood Pressure 103/71 104/65 101/66 O2 Sat by Pulse 100 100 100 Oximetry Medical Decision Making - Medical Decision Making Was pt. sent in by a medical professional or institution (, PA, NETWORK CONTROLLER, urgent care, hospital, or correction...) When possible be specific @ -No Did you speak to anyone other than the patient for history (EMS, parent, family, police, friend...)? What history was obtained from this source @ -No Did you review nursing and triage notes (agree or disagree)? Why? @ -I reviewed and agree with nursing and triage notes Were old charts reviewed (outside hosp., previous admission, EMS record, old EKG, old radiological studies, urgent care reports/EKG's, correction records)? Report findings @ -No old charts were reviewed Differential Diagnosis (chest pain, altered mental status, abdominal pain women, abdominal pain men, vaginal bleeding, weakness, fever, dyspnea, syncope, headache, dizziness, GI bleed, back pain, seizure, CVA, palpatations, mental health, musculoskeletal)? @ -MDM Differential Abdominal Pain Women: Appendicitis, Cholecystitis, diverticulosis, ischemic bowel, pancreatitis, hepatitis, UTI, gastroenteritis, AAA, incarcerated hernia, bowel obstruction, constipation, inflammatory bowel, hepatitis, peptic ulcer disease, splenic infarction, perforated viscus, vulvitis, ovarian torsion, PID, kidney stone, radha centa abruption... This is not meant to be an all-inclusive list EKG interpreted by me (3pts min.). @ -As above X-rays interpreted by me (1pt min.). @ -None done CT interpreted by me (1pt min.). @ -None done U/S interpreted by me (1pt. min.). @ -Ultrasound shows single live intrauterine gestation with ultrasound age 17 weeks 6 days. What testing was considered but not performed or refused? (CT, X-rays, U/S, labs)? Why? @ -None What meds were considered but not given or refused? Why? @ -None Did you discuss the management of the patient with other professionals (professionals i.e. Dr., PA, NETWORK CONTROLLER, lab, RT, psych nurse, high school social studies tutor, metallurgical laboratory assistant, teacher, information systems security officer, porter sample case)? Give summary @ -No Was smoking cessation discussed for >3mins.? @ -No Was critical care preformed (if so, how long)? @ -No Were there social determinants of health that impacted care today? How? (Homelessness, low income, unemployed, alcoholism, drug addiction, transportation, low edu. Level, literacy, decrease access to med. care, fdc, rehab)? @ -No Was there de-escalation of care discussed even if they declined (Discuss DNR or withdrawal of care, Hospice)? DNR status @ -No What co-morbidities impacted this encounter? (DM, HTN, Smoking, COPD, CAD, Cancer, CVA, ARF, Chemo, Hep., AIDS, mental health diagnosis, sleep apnea, morbid obesity)? @ -None Was patient admitted / discharged? Hospital course, mention meds given and route, prescriptions, significant lab abnormalities, going to OR and other pertinent info. @ -28-year-old female currently 17 weeks presenting with chief complai nt of lower abdominal pain. Feels like pain she has had in the past related to her IBS. History and physical examination are conducted. No leukocytosis or anemia. Sodium 136. CRP 1.3. Urine shows small leukocytes with many bacteria, patient will be treated with Keflex and urine is sent for culture. Ultrasound shows single live intrauterine gestation with appropriate ultrasound age. On reassessment the patient is resting showing no acute signs of distress. There has been some improvement in the pain. She is educated on today's findings. Educated on treatment plan. She requests treatment for possible yeast infection after antibiotics. Will send Reglan for her nausea. Discharged. Follow-up with PCP and OBGYN. Report back to ER with any new or worsening symptoms. Discussed return parameters and answered all questions. Patient conveyed verbal understanding and agreed to the plan. I discussed this case in detail with my attending Dr. Mora Undiagnosed new problem with uncertain prognosis? @ -No Drug Therapy requiring intensive monitoring for toxicity (Heparin, Nitro, I nsulin, Cardizem)? @ -No Were any procedures done? @ -No Diagnosis/symptom? @ -Abdominal pain in , asymptomatic bacteria Acute, or Chronic, or Acute on Chronic? @ -Acute Uncomplicated (without systemic symptoms) or Complicated (systemic symptoms)? @ -Uncomplicated Side effects of treatment? @ -No Exacerbation, Progression, or Severe Exacerbation? @ -No Poses a threat to life or bodily function? How? (Chest pain, [place], [place], pneumonia, PE, COPD, DKA, ARF, appy, cholecystitis, CVA, Diverticulitis, Homicidal, Suicidal, threat to staff... and all critical care pts) @ -Low likelihood - Lab Data Result diagrams: 08/03/24 18:54 08/03/24 18:54 Lab Results 08/03/24 08/03/24 08/03/24 Range/Units 18:54 18:54 18:54 WBC 10.2 (3.8-10.6) k/uL RBC 4.32 (3.80-5.40) m/uL Hgb 13.5 (11.4-16.0) gm/dL Hct 40.3 (34.0-46.0) % MCV 93.3 (80.0-100.0) fL MCH 31.2 (25.0-35.0) pg MCHC 33.4 (31.0-37.0) g/dL RDW 12.7 (11.5-15.5) % Plt Count 247 (150-450) k/uL MPV 7.2 Neutrophils % 75 % Lymphocytes % 15 % Monocytes % 6 % Eosinophils % 2 % Basophils % 0 % Neutrophils # 7.7 (1.3-7.7) k/uL Lymphocytes # 1.5 (1.0-4.8) k/uL Monocytes # 0.6 (0-1.0) k/uL Eosinophils # 0.2 (0-0.7) k/uL Basophils # 0.0 (0-0.2) k/uL Sodium 136 L (137-145) mmol/L Potassium 4.0 (3.5-5.1) mmol/L Chloride 106 (98-107) mmol/L Carbon Dioxide 26 (22-30) mmol/L Anion Gap 4 mmol/L BUN 7 (7-17) mg/dL Creatinine 0.50 L (0.52-1.04) mg/dL Est GFR (CKD-EPI)AfAm >90 (>60 ml/min/1.73 sqM) Est GFR (CKD-EPI)NonAf >90 (>60 ml/min/1.73 sqM) Glucose 82 (74-99) mg/dL Plasma Lactic Acid Jareth (0.7-2.0) mmol/L Calcium 9.3 (8.4-10.2) mg/dL Total Bilirubin 0.5 (0.2-1.3) mg/dL AST 16 (14-36) U/L ALT 12 (4-34) U/L Alkaline Phosphatase 69 (38-126) U/L C-Reactive Protein 1.3 H (<1.0) mg/dL Total Protein 6.9 (6.3-8.2) g/dL Albumin 4.1 (3.5-5.0) g/dL Lipase 108 (23-300) U/L Urine Color Yellow Urine Appearance Cloudy H (Clear) Urine pH 6.5 (5.0-8.0) Ur Specific [place] 1.026 (1.001-1.035) Urine Protein Trace H (Negative) Urine Glucose (UA) Negative (Negative) Urine Ketones Trace H (Negative) Urine Blood Negative (Negative) Urine Nitrite Negative (Negative) Urine Bilirubin Negative (Negative) Urine Urobilinogen <2.0 (<2.0) mg/dL Ur Leukocyte Esterase Small H (Negative) Urine RBC 3 (0-5) /hpf Urine WBC 6 H (0-5) /hpf Ur Squamous Epith Cells 33 H (0-4) /hpf Amorphous Sediment Rare H (None) /hpf Urine Bacteria Many H (None) /hpf Urine Mucus Many H (None) /hpf 12//24 Range/Units 18:54 WBC (3.8-10.6) k/uL RBC (3.80-5.40) m/uL Hgb (11.4-16.0) gm/dL Hct (34.0-46.0) % MCV (80.0-100.0) fL MCH (25.0-35.0) pg MCHC (31.0-37.0) g/dL RDW (11.5-15.5) % Plt Count (150-450) k/uL MPV Neutrophils % % Lymphocytes % % Monocytes % % Eosinophils % % Basophils % % Neutrophils # (1.3-7.7) k/uL Lymphocytes # (1.0-4.8) k/uL Monocytes # (0-1.0) k/uL Eosinophils # (0-0.7) k/uL Basophils # (0-0.2) k/uL Sodium (137-145) mmol/L Potassium (3.5-5.1) mmol/L Chloride (98-107) mmol/L Carbon Dioxide (22-30) mmol/L Anion Gap mmol/L BUN (7-17) mg/dL Creatinine (0.52-1.04) mg/dL Est GFR (CKD-EPI)AfAm (>60 ml/min/1.73 sqM) Est GFR (CKD-EPI)NonAf (>60 ml/min/1.73 sqM) Glucose (74-99) mg/dL Plasma Lactic Acid Jareth 0.8 (0.7-2.0) mmol/L Calcium (8.4-10.2) mg/dL Total Bilirubin (0.2-1.3) mg/dL AST (14-36) U/L ALT (4-34) U/L Alkaline Phosphatase (38-126) U/L C-Reactive Protein (<1.0) mg/dL Total Protein (6.3-8.2) g/dL Albumin (3.5-5.0) g/dL Lipase (23-300) U/L Urine Color Urine Appearance (Clear) Urine pH (5.0-8.0) Ur Specific [place] (1.001-1.035) Urine Protein (Negative) Urine Glucose (UA) (Negative) Urine Ketones (Negative) Urine Blood (Negative) Urine Nitrite (Negative) Urine Bilirubin (Negative) Urine Urobilinogen (<2.0) mg/dL Ur Leukocyte Esterase (Negative) Urine RBC (0-5) /hpf Urine WBC (0-5) /hpf Ur Squamous Epith Cells (0-4) /hpf Amorphous Sediment (None) /hpf Urine Bacteria (None) /hpf Urine Mucus (None) /hpf Disposition Clinical Impression: Abdominal pain in , Asymptomatic bacteriuria Disposition: HOME SELF-CARE Condition: Good Instructions (If sedation given, give patient instructions): Abdominal Pain in (ED) Additional Instructions: Follow-up with your PCP and [employer] TRANSPORT SERVICE MANAGER. Report back to ER with any new or worsening symptoms. Take medication as prescribed. Prescriptions: Cephalexin [Keflex] 500 mg PO Q12HR 7 Days #14 cap Miconazole 2% Vaginal Cream [Monistat 7] 1 applicator VAGINAL HS #45 gm Metoclopramide [Reglan] 5 mg PO BID PRN #10 tab PRN Reason: Nausea Is patient prescribed a controlled substance at d/c from ED?: No Referrals: None,Stated [Primary Care Provider] - 1-2 days Time of Disposition: 21:21
[2024-08-03 19:09] LABS: Basophils % (A) 0 %; Eosinophils # (A) 0.2 k/uL (0-0.7); Eosinophils % (A) 2 %; HCT 40.3 % (34.0-46.0); HGB 13.5 gm/dL (11.4-16.0); Lymphocytes # (A) 1.5 k/uL (1.0-4.8); Lymphocytes % (A) 15 %; MCH 31.2 pg (25.0-35.0); MCHC 33.4 g/dL (31.0-37.0); MCV 93.3 fL (80.0-100.0); Mean Platelet Volume 7.2; Monocytes # (A) 0.6 k/uL (0-1.0); Monocytes % (A) 6 %; Neutrophils # (A) 7.7 k/uL (1.3-7.7); Neutrophils % (A) 75 %; Platelet Count 247 k/uL (150-450); RBC 4.32 m/uL (3.80-5.40); RDW 12.7 % (11.5-15.5); WBC 10.2 k/uL (3.8-10.6)
[2024-08-03 19:22] LABS: Amorphous Sediment,Urine Rare /hpf; Appearance,Urine Cloudy (Clear); Bacteria,Urine Many /hpf; Bilirubin,Urine Negative (Negative); Blood,Urine Negative (Negative); Color,Urine Yellow; Glucose,Urine (UA) Negative (Negative); Ketones,Urine Trace (Negative); Leukocyte Esterase,Urine Small (Negative); Mucus,Urine Many /hpf; Nitrite,Urine Negative (Negative); PH, Urine 6.5 (5.0-8.0); Protein,Urine Trace (Negative); RBC,Urine 3 /hpf (0-5); Specific Gravity,Urine 1.026 (1.001-1.035); Squamous Epithelial Cell,Urine 33 /hpf (0-4); Urobilinogen,Urine <2.0 mg/dL (<2.0); WBC,Urine 6 /hpf (0-5)
[2024-08-03 19:23] LABS: ALT 12 U/L (4-34); AST 16 U/L (14-36); African American GFR (CKD) >90 (>60 ml/min/1.73 sqM); Albumin 4.1 g/dL (3.5-5.0); Alkaline Phosphatase 69 U/L (38-126); Anion Gap 4 mmol/L; Blood Urea Nitrogen 7 mg/dL (7-17); C Reactive Protein 1.3 mg/dL (<1.0); Calcium 9.3 mg/dL (8.4-10.2); Carbon Dioxide 26 mmol/L (22-30); Chloride 106 mmol/L (98-107); Glucose 82 mg/dL (74-99); Lipase 108 U/L (23-300); Non-African American GFR(CKD) >90 (>60 ml/min/1.73 sqM); Sodium 136 mmol/L (137-145); Total Bilirubin 0.5 mg/dL (0.2-1.3); Total Protein 6.9 g/dL (6.3-8.2)
[2024-08-03 20:14] VITALS: RESP 17
--- NOTE | 2024-08-03 20:23 | US ---
EXAMINATION TYPE: US OB >= 14 wk fetus DATE OF EXAM: 08/03/2024 COMPARISON: None CLINICAL INDICATION: Female, 28 years old with history of pain; pain began 1-2pm TECHNIQUE: Transabdominal (TA) FINDINGS: GESTATIONAL AGE / DATING Physician Established: (17 weeks/0 days) EDC: 01/11/2025 Dates by LMP: LMP unknown Dates by First Scan: No previous this is first scan Dates by Current Scan: (17 weeks/6 days) EDC: 01/02/2025 Beta HCG (if available): Not available at this time SURVEY IUP: Single PLACENTA: Anterior PREVIA: No Previa VIJAY: 10.8 cm Normal CERVICAL LENGTH (transabdominal: norm > 3.0cm): 3.2 cm BIOMETRY PRESENTATION: Vertex LIE: Longitudinal BPD: 3.76 cm 17 weeks / 4 days HC: 14.2 cm 17 weeks / 4 days AC: 12.02 cm 17 weeks / 5 days FL: 2.7 cm 18 weeks / 2 days ESTIMATED WEIGHT IN GRAMS: 214 grams ESTIMATED WEIGHT IN LBS/OZ: 0 lbs. 8 oz. WEIGHT PERCENTAGE BASED ON ESTABLISHED DATES: 93% HC/AC: 1.18 Normal FL/AC: 22% Normal HEART RATE: 150 bpm RHYTHM: Normal exam limited by position and movement IMPRESSION: Single live intrauterine gestation with ultrasound age 17 weeks 6 days. Additional information as harpreet cribed above. [facility], , 08/03/2024 8:21 PM
[2024-08-03 21:47] VITALS: BP 101/66; PULSE 60; TEMP 98.6
== END 2024-08-03 21:48 | disposition home or self-care (01) ==
LOC: EC 17:49
DX: O26.892 Other specified pregnancy related conditions, second trimester (principal); R10.30 Lower abdominal pain, unspecified; R82.71 Bacteriuria; Z3A.17 17 weeks gestation of pregnancy
CPT/HCPCS: 36415; 80053; 83605; 83690; 85025; 86140; 81001; 76805; 99284; 96374; 96361; J2405

== ENCOUNTER 2024-11-18 11:52 | Outpatient (CLI) | payer OTHER ==
[2024-11-18 13:24] LABS: Appearance,Urine Cloudy (Clear); Bacteria,Urine Occasional /hpf; Bilirubin,Urine Negative (Negative); Blood,Urine Trace (Negative); Color,Urine Yellow; Glucose,Urine (UA) Negative (Negative); Ketones,Urine Negative (Negative); Leukocyte Esterase,Urine Small (Negative); Mucus,Urine Rare /hpf; Nitrite,Urine Negative (Negative); Protein,Urine Negative (Negative); RBC,Urine 24 /hpf (0-5); Specific Gravity,Urine 1.017 (1.001-1.035); Squamous Epithelial Cell,Urine 3 /hpf (0-4); Urobilinogen,Urine <2.0 mg/dL (<2.0); WBC,Urine 3 /hpf (0-5)
[2024-11-18 13:47] VITALS: BP 103/69; PULSE 103; RESP 14; TEMP 97.6
--- NOTE | 2024-12-15 11:32 | P.MSEPDOC ---
Presenting Problems - Arrival Data Date of Arrival on Unit: 11/18/24 Time of Arrival on Unit: 11:52 Mode of Transport: Ambulatory - Complaint OB-Reason for Admission/Chief Complaint: Hyperemesis, Dizziness Medical History - Information : 7 Para: 1 Term: 1 : 0 Abortions: Spontaneous or Elective: 0 Number of Living Children: 1 - Gestational Age Gestational Age by GARRETT (wks/days): 32 Weeks and 2 Days Review of Systems - Review of Systems Constitutional: No problems Breast: No problems ENT: No problems Cardiovascular: No problems Respiratory: No problems Gastrointestinal: No problems Genitourinary: No problems Musculoskeletal: No problems Neurological: No problems Skin: No problems Vital Signs - Temperature Temperature: 97.6 F Temperature Source: Temporal Artery Scan - Pulse Right Brachial Pulse Rate: 103 Pulse Assessment Method: Automatic Cuff - Respirations Respiratory Rate: 14 Oxygen Delivery Method: Room Air - Blood Pressure Right Arm Blood Pressure: 103/69 Blood Pressure Mean: 80 Blood Pressure Source: Automatic Cuff Medical Screen Scoring - Assessment - Baby A Baseline FHR: 135 Heart Rate - NICHD Category: Category I (Normal) NST: Reactive Physician Notification - Physician Notified Physician Notified Date: 11/18/24 Physician Notified Time: 13:40 Physician: Evaristo Silva Order Received: Yes - Notification Comment Comment: d/c home Maternal Triage Index - Maternal Triage Index Presenting for scheduled procedure w/no complaint: No - Stat/Priority 1 Stat Priority 1: No - Urgent/Priority 2 Urgent Priority 2: No - Prompt/Priority 3 Prompt Priority 3: No - Non-Urgent/Priority 4 Non-Urgent Priority 4: Yes Criteria Met for Priority 4: nausea Disposition - Disposition OB Disposition: Discharge to home Discharge Date: 11/18/24 Discharge Time: 13:46 I agree with the RN Medical Screening Exam: Yes Physician's MSE Comment: I have neither seen nor examined the patient. Case reviewed; plan agreed upon as documented in EMR&OBIX.: Yes Diagnosis: RELATED CONDITIONS, UNSPECIFIED, THIRD TRIMESTER
== END 2024-11-18 13:48 | disposition home or self-care (01) ==
LOC: FBPOP 11:52
PROVIDERS: ATTEND Obstetrics & Gynecology
DX: O21.0 Mild hyperemesis gravidarum (principal); R42 Dizziness and giddiness; Z3A.32 32 weeks gestation of pregnancy
CPT/HCPCS: 59025; 81001; 87086; G0463; 99213; 99214

== ENCOUNTER 2024-12-28 17:41 | Observation (INO) | payer OTHER ==
[2024-12-28] MEDS ORDERED: miSOPROStoL 200 MCG TAB RECTAL PRN (19:23)
[2024-12-28] MEDS ORDERED: METHYLERGONOVINE 0.2 MG/ML 1 ML AMP IM PRN (19:23)
[2024-12-28] MEDS ORDERED: TRANEXAMIC 1,000 MG/100ML-NACL 1,000 MG in EMPTY BAG 1 BAG IV PRN (19:23)
[2024-12-28] MEDS ORDERED: CARBOPROST TROMETHAMINE 250 MCG/ML 1 ML AMP IM PRN (19:23)
[2024-12-28] MEDS ORDERED: miSOPROStoL 200 MCG TAB PO PRN (19:23)
[2024-12-28] MEDS ORDERED: TERBUTALINE 1 MG/ML VIAL SQ PRN (19:23)
[2024-12-28] MEDS ORDERED: OXYTOCIN 10 UNIT/ML 1 ML VIAL IM PRN (19:23)
[2024-12-28] MEDS ORDERED: LIDOCAINE 0.5% (PF) 5 MG/ML (50 ML SDV) SQ PRN (19:23)
[2024-12-28] MEDS ORDERED: OXYTOCIN 30 UNITS/500 ML NS 30 UNIT in SALINE 1 500ML.BAG IV SCH (19:30)
[2024-12-28] MEDS: LACTATED RINGERS 1,000 ML IV SCH (19:30)
[2024-12-28 19:53] LABS: Basophils # (A) 0.03 10*3/uL (0.00-0.10); Basophils % (A) 0.4 %; Eosinophils % (A) 2.3 %; HCT 34.7 % (37.2-46.3); HGB 11.7 g/dL (12.0-15.0); Lymphocytes # (A) 1.51 10*3/uL (0.90-5.00); Lymphocytes % (A) 17.7 %; MCH 31.4 pg (27.0-32.0); MCHC 33.7 g/dL (32.0-37.0); Mean Platelet Volume 10.2 fL (9.5-12.2); Monocytes % (A) 9.4 %; Neutrophils # (A) 5.98 10*3/uL (1.80-7.70); Neutrophils % (A) 69.8 %; Platelet Count 191 10*3/uL (140-440); RBC 3.73 10*6/uL (4.10-5.20); RDW 14.3 % (11.5-14.5); WBC 8.55 10*3/uL (4.50-10.00)
[2024-12-29 00:41] VITALS: BP 114/73; PULSE 86; RESP 16; TEMP 96.6
--- NOTE | 2024-12-29 08:21 | P.DS ---
Providers Date of admission: 12/28/24 19:12 Expected date of discharge: 12/29/24 Attending physician: Evaristo Silva Primary care physician: Stated None Hospital Course: Ms. Fuentes is a 29 year old at 38 weeks and 1 day with EDC of 01/11/2025 by 6 week who presented to triage yesterday evening with irregular contractions, complains of leakage of fluid, and pressure. AmniSure was negative, however contractions were every 5 to 8 minutes and the patient was found to be 5 to 6 cm dilated. This was a change from when she was seen in the office 1 day prior, when she was 3 cm dilated. She was observed overnight and ultimately slept well without many contractions. She is still 6 cm this morning, 50% effaced, -3 presentation with a very posterior cervix. Her has been uncomplicated. This morning she was given the option of labor augmentation with Pitocin and artificial rupture of membranes versus being discharged home for expectant management. She is hoping to labor without an epidural and fears that if she has her water broken it will make her labor more painful. She has decided to go home. She is given return precautions including leaking of fluid, regular contractions, pressure, decreased movement, and vaginal bleeding. She knows to come back quickly if she feels that she is in labor because she lives in [place]. All questions are answered. She is scheduled for a follow up appointment with Dr. Silva on 01/03 and has an induction of labor scheduled for 01/04. Assessment: 29 year old at 38 weeks and 1 day with advanced cervical dilation Patient Condition at Discharge: Good Plan - Discharge Summary New Discharge Prescriptions: No Action Pnv No.95/Ferrous Fum/Folic AC [ Multivitamin Tablet] 1 tab PO DAILY Discharge Medication List Pnv No.95/Ferrous Fum/Folic AC [ Multivitamin Tablet] 1 tab PO DAILY 10/17/21 [History] Discharge Disposition: HOME SELF-CARE
== END 2024-12-29 08:30 | disposition home or self-care (01) ==
LOC: FBPOP 17:41 → 4FBP 19:12 → INTOOBSV 19:12
PROVIDERS: ADMIT Obstetrics & Gynecology; ATTEND Obstetrics & Gynecology
DX: O47.1 False labor at or after 37 completed weeks of gestation (principal); Z3A.38 38 weeks gestation of pregnancy
CPT/HCPCS: 59025; 84112; 86900; 86901; 85025; 86850; G0463; G0378 ×2; 99213

== ENCOUNTER 2024-12-31 13:30 | Inpatient (IN) | payer OTHER ==
[2024-12-31] MEDS ORDERED: miSOPROStoL 200 MCG TAB RECTAL PRN (15:34)
[2024-12-31] MEDS ORDERED: CARBOPROST TROMETHAMINE 250 MCG/ML 1 ML AMP IM PRN (15:34)
[2024-12-31] MEDS ORDERED: miSOPROStoL 200 MCG TAB PO PRN (15:34)
[2024-12-31] MEDS ORDERED: TERBUTALINE 1 MG/ML VIAL SQ PRN (15:34)
[2024-12-31] MEDS ORDERED: LIDOCAINE 0.5% (PF) 5 MG/ML (50 ML SDV) SQ PRN (15:34)
[2024-12-31] MEDS ORDERED: OXYTOCIN 10 UNIT/ML 1 ML VIAL IM PRN (15:34)
[2024-12-31] MEDS ORDERED: METHYLERGONOVINE 0.2 MG/ML 1 ML AMP IM PRN (15:34)
[2024-12-31] MEDS ORDERED: TRANEXAMIC 1,000 MG/100ML-NACL 1,000 MG in EMPTY BAG 1 BAG IV PRN (15:34)
[2024-12-31] MEDS ORDERED: BUTORPHANOL 1 MG/ML 1 ML VIAL IV PRN (15:36)
[2024-12-31] MEDS: LACTATED RINGERS 1,000 ML IV SCH (16:45)
[2024-12-31 17:07] LABS: Basophils # (A) 0.05 10*3/uL (0.00-0.10); Basophils % (A) 0.4 %; Eosinophils # (A) 0.14 10*3/uL (0.04-0.35); Eosinophils % (A) 1.2 %; HCT 34.5 % (37.2-46.3); HGB 11.7 g/dL (12.0-15.0); Lymphocytes # (A) 1.26 10*3/uL (0.90-5.00); MCH 31.7 pg (27.0-32.0); MCHC 33.9 g/dL (32.0-37.0); MCV 93.5 fL (80.0-97.0); Mean Platelet Volume 10.9 fL (9.5-12.2); Monocytes # (A) 0.75 10*3/uL (0.20-1.00); Monocytes % (A) 6.6 %; Neutrophils # (A) 9.16 10*3/uL (1.80-7.70); Neutrophils % (A) 80.3 %; Platelet Count 235 10*3/uL (140-440); RBC 3.69 10*6/uL (4.10-5.20); RDW 14.6 % (11.5-14.5); WBC 11.42 10*3/uL (4.50-10.00)
[2025-01-01] MEDS: OXYTOCIN 30 UNITS/500 ML NS 30 UNIT in SALINE 1 500ML.BAG IV SCH (06:30)
--- NOTE | 2025-01-01 08:45 | P.HPOB ---
History of Present Illness H&P Date: 01/01/25 Chief Complaint: 38+ weeks, advanced cervical dilation, latent labor Patient is a 29-year-old 8 para 1-0-6-1 admitted at 38+ weeks as established by 6-week ultrasound. She is admitted with advanced cervical dilation at approximately 6 cm of dilation but the head not well applied to the cervix. She had previously had 24 hours of observation in the hospital last we ekend for similar with no onset of labor. She opted not to have intervention done at that time but Jyotsna presented yesterday now asking for augmentation of labor. Given the hour that she was admitted, the decision was made to observe for labor overnight and begin augmentation this morning. Her has been entirely uncomplicated and group B strep status is negative. On labor and delivery, all signs are reassuring with a category 1 heart rate tracing. Obstetrical history: 8 para 1-0-6-1 with 1 term vaginal delivery without complications. Current statistics are listed in history of present illness. EDC of 01/11/2025 was established by 6-week ultrasound. Laboratory workup demonstrates a blood type of B+ with a negative antibody screen. Rubella status is immune. The remainder of the laboratory workup was within normal limits. 1 hour Glucola was normal and group B strep status is negative. Gynecologic history: Unremarkable with no history of any infections to include STDs. Review of Systems Review of systems is confined to history of present illness. Past Medical History Past Medical History: No Reported History Additional Past Medical History / Comment(s): PCOS, IBD, carpal tunnel History of Any Multi-Drug Resistant Organisms: None Reported Past Surgical History: No Surgical Hx Reported Additional Past Surgical History / Comment(s): D&C (2019), wisdom teeth. Past Anesthesia/Blood Transfusion Reactions: No Reported Reaction Past Psychological History: No Psychological Hx Reported Smoking Status: Never smoker Past Alcohol Use History: Occasional Past Drug Use History: None Reported - Past Family History Father History Unknown: Yes Medications and Allergies Home Medications Medication Instructions Recorded Confirmed Type Pnv No.95/Ferrous Fum/Folic AC 1 tab PO DAILY 10/17/21 12/31/24 History [ Multivitamin Tablet] Allergies Allergy/AdvReac Type Severity Reaction Status Date / Time No Known Allergies Allergy Verified 12/31/24 13:39 Exam Vital Signs Temp Pulse Resp BP Pulse Ox 12/31/24 15:37 97.9 F 95 16 124/81 12/31/24 15:08 97.9 F 95 16 124/81 99 Intake and Output 12/31/24 01/01/25 01/01/25 22:59 06:59 14:59 Intake Total 520 Balance 520 Intake: Oral 520 Other: # Voids 2 2 Weight 72.121 kg In general, this is a well-developed, well-nourished white female in no acute distress. Her heart has a regular rhythm and rate without murmur. Her lungs are clear to auscultation bilaterally in all perry. Her abdomen is gravid, nondistended, has normal active bowel sounds, is soft, nontender, and without any palpable masses aside from the uterine fundus. Her extremities are without any cyanosis, clubbing, or edema and are nontender to palpation bilaterally. Digital cervical examination demonstrates her cervix to be approximately 6 to 7 cm dilated, 60% effaced, the vertex and presentation at -3 station. Artificial rupture of membranes is carried out demonstrating clear fluid. Results Result Diagrams: 12/31/24 15:34 Abnormal Lab Results - Last 24 Hours (Table) 12/31/24 Range/Units 15:34 WBC 11.42 H (4.50-10.00) 10*3/uL RBC 3.69 L (4.10-5.20) 10*6/uL Hgb 11.7 L (12.0-15.0) g/dL Hct 34.5 L (37.2-46.3) % Immature Gran # 0.06 H (0.00-0.04) 10*3/uL Neutrophils # 9.16 H (1.80-7.70) 10*3/uL Assessment and Plan (1) Prolonged latent phase of labor Current Visit: Yes Status: Acute Code(s): O63.0 - PROLONGED FIRST STAGE (OF LABOR) SNOMED Code(s): 982730573 (2) 38 weeks gestation of Current Visit: No Status: Acute Code(s): Z3A.38 - 38 WEEKS GESTATION OF SNOMED Code(s): 76514045 Plan: The patient has had Pitocin augmentation started and undergone artificial rupture of membranes. She will have close maternal and surveillance and expectant management will be practiced. She is a good candidate for either IV or epidural analgesia though she is declining both at this time. I would anticipate normal spontaneous vaginal delivery in the next several hours.
[2025-01-01] MEDS ORDERED: ROPIVACAINE 5 MG/ML 30 ML VIAL ONE (09:15)
[2025-01-01] MEDS ORDERED: SODIUM CHLORIDE 0.9% 250 ML BAG ONE (09:15)
[2025-01-01] MEDS ORDERED: fentaNYL (PF) 50 MCG/ML 5 ML AMP ONE (09:15)
[2025-01-01] MEDS ORDERED: diphenhydrAMINE 25 MG CAP PO PRN (09:47)
[2025-01-01] MEDS ORDERED: diphenhydrAMINE 50 MG CAP PO PRN (09:47)
[2025-01-01] MEDS ORDERED: diphenhydrAMINE 50 MG/ML 1 ML VIAL IVP PRN ×2 (09:47)
[2025-01-01] MEDS ORDERED: HYDROCORTISONE 2.5% RECTAL CREAM 30 GM TUBE RECTAL PRN (09:47)
[2025-01-01] MEDS ORDERED: BENZOCAINE/MENTHOL SPRAY 1 GM/SPRAY AEROSOL TOPICAL PRN (09:47)
[2025-01-01] MEDS ORDERED: ZOLPIDEM 5 MG TAB PO PRN (09:47)
[2025-01-01] MEDS ORDERED: SIMETHICONE 80 MG CHEWABLE PO PRN (09:47)
[2025-01-01] MEDS ORDERED: LANOLIN CREAM 1 GM TUBE TOPICAL PRN (09:47)
[2025-01-01] MEDS ORDERED: ACETAMINOPHEN TAB 500 MG TAB PO PRN (09:47)
--- NOTE | 2025-01-01 09:51 | P.PROBDLV ---
Vaginal Delivery Note - . Vaginal Delivery Note: Date of delivery/service: 01/01/2025 The patient is a 29-year-old 8 para 1-0-6-1 admitted at 38-2/7 but augmented at 38-3/7 weeks as established by good dating parameters. She is admitted with advanced cervical dilation at approximately 6 cm. On admission all signs are reassuring with a category 1 heart rate tracing. Her has been otherwise entirely uncomplicated. Augmentation was not carried out secondary to the late timing of her presentation. Labor did not ensue on its own overnight and she had Pitocin augmentation started early in the morning. She then underwent artificial rupture of membranes for clear fluid. She progressed fairly rapidly to complete and pushed over the course of 1 contraction to a normal spontaneous vaginal delivery of a viable 7 pound 12 ounce baby girl with Apgars of 9 at 1 minute and 9 at 5 minutes delivered in the left occiput anterior position. The placenta was delivered spontaneously, intact, and grossly normal with a grossly normal, centrally inserted three- vessel cord. There were no lacerations of the perineum, vagina, or cervix. There were no complications. All sponge, instrument, and needle counts were correct. Estimated blood loss was approximately 150 mL. The patient tolerated the procedure well and both mother and infant are resting comfortably in recovery.
[2025-01-01] MEDS ORDERED: OXYTOCIN 30 UNITS/500 ML NS 30 UNIT in SALINE 1 500ML.BAG IV SCH (10:00)
[2025-01-01] MEDS: ROPIVACAINE 225 MG, fentaNYL (PF). 450 MCG in SODIUM CHLORIDE 0.9% 171 ML EPIDURAL ONE (16:08)
[2025-01-01] MEDS: IBUPROFEN 800 MG TAB PO PRN (18:01)
[2025-01-01] MEDS: SENNOSIDES-DOCUSATE SODIUM 1 EACH TAB PO SCH (19:00)
[2025-01-01 20:53] VITALS: RESP 16
[2025-01-02 06:32] LABS: Basophils # (A) 0.06 10*3/uL (0.00-0.10); Basophils % (A) 0.4 %; Eosinophils # (A) 0.45 10*3/uL (0.04-0.35); Eosinophils % (A) 3.4 %; HCT 33.2 % (37.2-46.3); Lymphocytes # (A) 1.75 10*3/uL (0.90-5.00); Lymphocytes % (A) 13.1 %; MCH 31.1 pg (27.0-32.0); MCHC 33.1 g/dL (32.0-37.0); MCV 93.8 fL (80.0-97.0); Mean Platelet Volume 10.2 fL (9.5-12.2); Monocytes # (A) 1.19 10*3/uL (0.20-1.00); Monocytes % (A) 8.9 %; Neutrophils # (A) 9.83 10*3/uL (1.80-7.70); Neutrophils % (A) 73.7 %; Platelet Count 167 10*3/uL (140-440); RBC 3.54 10*6/uL (4.10-5.20); RDW 14.5 % (11.5-14.5); WBC 13.35 10*3/uL (4.50-10.00)
--- NOTE | 2025-01-02 08:34 | P.DS ---
Providers Date of admission: 12/31/24 15:08 Expected date of discharge: 01/02/25 Attending physician: Evaristo Silva Primary care physician: Stated None - Discharge Diagnosis(es) (1) Prolonged latent phase of labor Current Visit: Yes Status: Acute (2) 38 weeks gestation of Current Visit: No Status: Acute (3) Normal spontaneous vaginal delivery Current Visit: Yes Status: Acute Hospital Course: Patient is a 29-year-old 8 para 1-0-6-1 admitted at 38+ weeks by good dating parameters. She is admitted with advanced cervical dilation at approximately 6 cm of dilation and all signs reassuring, category 1 heart rate tracing. She had been admitted several days earlier for observation under similar circumstances at which time she declined intervention or augmentation. She returned to the hospital on the day of presentation now requesting augmentation. She was observed overnight as the ER presentation was somewhat late and did not progress. The following morning she had Pitocin augmentation started and underwent artificial rupture of membranes. She progressed quickly then to complete and pushed quickly to a normal spontaneous vaginal delivery of a viable 7 pound 12 ounce baby girl with Apgars of 9 at 1 minute and 9 at 5 minutes. Her course was unremarkable with vital signs remaining stable and her temperature was afebrile throughout. She was deemed stable for discharge on day #1 and was discharged home to follow-up in the office in 6 weeks time routinely. Discharge instructions included calling for any significantly increased bleeding or foul-smelling lochia, significantly increased fever or abdominal pain, perineal complaints, breast complaints, or anything else that concerned her. She was additionally instructed to have nothing in the vagina for at least 6 weeks time to include intercourse. She understood her instructions and agrees to follow-up as noted above. Discharge medications included continued vitamins as she has opted to breast- feed. She was otherwise to use [id number] analgesic pain medications. Maternal blood type is B+ and rubella status is immune. Procedures: #1. Pitocin augmentation #2. Artificial rupture of membranes #3. Normal spontaneous vaginal delivery Patient Condition at Discharge: Stable Plan - Discharge Summary New Discharge Prescriptions: No Action Pnv No.95/Ferrous Fum/Folic AC [ Multivitamin Tablet] 1 tab PO DAILY Discharge Medication List Pnv No.95/Ferrous Fum/Folic AC [ Multivitamin Tablet] 1 tab PO DAILY 10/17/21 [History] Follow up Appointment(s)/Referral(s): Evaristo Silva MD [STAFF PHYSICIAN] - 6 Weeks Discharge Disposition: HOME SELF-CARE
[2025-01-02 09:14] VITALS: BP 113/67; PULSE 65; TEMP 98.4
== END 2025-01-02 10:09 | disposition home or self-care (01) | DRG 560 ==
LOC: FBPOP 13:30 → 4FBP 15:08
PROVIDERS: ADMIT Obstetrics & Gynecology; ATTEND Obstetrics & Gynecology
PROC: 10E0XZZ Delivery of Products of Conception, External Approach (ICD-10-PCS; principal; 2025-01-01)
PROC: 10907ZC Drainage of Amniotic Fluid, Therapeutic from Products of Conception, Via Natural or Artificial Opening (ICD-10-PCS; principal; 2025-01-01)
DX: O63.0 Prolonged first stage (of labor) (principal); Z37.0 Single live birth; Z3A.38 38 weeks gestation of pregnancy
CPT/HCPCS: 59025; 85025; 99213

== ENCOUNTER 2025-01-08 13:40 | Emergency (ER) | payer OTHER ==
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
[2025-01-08 16:35] VITALS: BP 111/79; PULSE 73; RESP 18; TEMP 97.9
== END 2025-01-08 16:36 | disposition home or self-care (01) ==
LOC: EC 13:40
DX: S09.90XA Unspecified injury of head, initial encounter (principal); V49.40XA Driver injured in collision with unspecified motor vehicles in traffic accident, initial encounter; Y92.410 Unspecified street and highway as the place of occurrence of the external cause
CPT/HCPCS: 70450; 72125; 99284